=== PATIENT | male | born 1985 | race Caucasian/White ===

== ENCOUNTER 2016-11-17 23:44 | Emergency (ER) | payer SELFPAY ==
[2016-11-18] MEDS ORDERED: SODIUM CHLORIDE 0.9% 500 ML IV STA (00:22)
[2016-11-18 00:30] LABS: Basophils # (A) 0.1 k/uL (0-0.2); Basophils % (A) 0 %; CH 28.6; CHCM 34.3; Eosinophils # (A) 0.2 k/uL (0-0.7); Eosinophils % (A) 1 %; HCT 49.9 % (39.0-53.0); HDW 2.61; HGB 16.4 gm/dL (13.0-17.5); Luc # (Auto) 0.15; Luc % (Auto) 1; Lymphocytes # (A) 1.6 k/uL (1.0-4.8); Lymphocytes % (A) 8 %; MCH 27.5 pg (25.0-35.0); MCHC 32.8 g/dL (31.0-37.0); MCV 83.9 fL (80.0-100.0); Mean Platelet Volume 6.7; Monocytes # (A) 0.6 k/uL (0-1.0); Monocytes % (A) 3 %; Neutrophils # (A) 18.5 k/uL (1.3-7.7); Neutrophils % (A) 88 %; RBC 5.94 m/uL (4.30-5.90); RDW 14.4 % (11.5-15.5); WBC 21.1 k/uL (3.8-10.6); WBC (Perox) 21.21
[2016-11-18 00:39] LABS: Acetaminophen <10.0 ug/mL; Alcohol <10 mg/dL; Anion Gap 14 mmol/L; Blood Urea Nitrogen 14 mg/dL (9-20); Carbon Dioxide 24 mmol/L (22-30); Chloride 102 mmol/L (98-107); Glucose 104 mg/dL (74-99); Non-African American GFR(MDRD) 40 (>60 ml/min/1.73 sqM); Potassium 4.5 mmol/L (3.5-5.1); Salicylate <1.0 mg/dL; Sodium 140 mmol/L (137-145)
[2016-11-18] MEDS ORDERED: SODIUM CHLORIDE 0.9% 1,000 ML IV ONE (02:05)
--- NOTE | 2016-11-18 02:10 | ED ---
Overdose HPI - General Chief Complaint: Overdose Stated Complaint: Mental Health/Heroin Use Time Seen by Provider: 11/18/16 00:04 Source: patient Mode of arrival: ambulatory Limitations: no limitations - History of Present Illness MD Complaint: accidental overdose -: minutes(s) How Overdose Was Discovered: family/friend present at time Context: Accidental Overdose: wanted to get high - Related Data Previous Rx's Medication Instructions Recorded Ondansetron Odt [Zofran ODT] 4 mg PO Q8HR PRN #10 tab 11/18/16 cloNIDine HCL [Catapres] 0.2 mg PO TID #20 tablet 11/18/16 Allergies Allergy/AdvReac Type Severity Reaction Status Date / Time No Known Allergies Allergy Verified 11/17/16 23:56 Review of Systems ROS Statement: Those systems with pertinent positive or pertinent negative responses have been documented in the HPI. ROS Other: All systems not noted in ROS Statement are negative. Constitutional: Denies: fever, chills Cardiovascular: Denies: chest pain Gastrointestinal: Denies: abdominal pain, nausea, vomiting Musculoskeletal: Denies: back pain Skin: Denies: rash Neurological: Denies: headache, weakness, numbness Psychiatric: Denies: homicidal thoughts, suicidal thoughts Past Medical History Past Medical History: No Reported History Additional Past Medical History / Comment(s): cardiac arrest due to overdose; hep C History of Any Multi-Drug Resistant Organisms: MRSA Past Surgical History: No Surgical Hx Reported Past Psychological History: Anxiety, Depression Smoking Status: Current some day smoker Past Alcohol Use History: Daily Past Drug Use History: Cocaine, Heroin General Exam Limitations: no limitations General appearance: alert, in no apparent distress Head exam: Present: atraumatic, normocephalic Eye exam: Present: normal appearance. Absent: scleral icterus, conjunctival injection Neck exam: Present: normal inspection, full ROM Respiratory exam: Present: normal lung sounds bilaterally. Absent: respiratory distress, wheezes, rales, rhonchi, stridor Cardiovascular Exam: Present: regular rate, normal rhythm, normal heart sounds. Absent: systolic murmur, diastolic murmur, rubs, gallop GI/Abdominal exam: Present: soft. Absent: distended, tenderness, guarding, rebound, rigid Extremities exam: Present: normal inspection, normal capillary refill. Absent: pedal edema, calf tenderness Back exam: Present: normal inspection. Absent: CVA tenderness (R), CVA tenderness (L) Skin exam: Present: warm, dry, intact, normal color. Absent: rash Course Vital Signs 11/17/16 11/18/16 11/18/16 23:50 00:19 00:39 Temperature 96.9 F L Pulse Rate 104 H 102 H 82 Respiratory 20 16 16 Rate Blood Pressure 89/55 106/56 98/61 O2 Sat by Pulse 98 96 97 Oximetry 11/18/16 11/18/16 11/18/16 00:59 01:59 03:20 Temperature 98.0 F Pulse Rate 82 89 88 Respiratory 16 16 18 Rate Blood Pressure 101/71 117/70 117/56 O2 Sat by Pulse 97 98 99 Oximetry Medical Decision Making - Medical Decision Making Patient is 31-year-old man who was brought by family with concerns about his heroin use and for an attempt to find rehabilitation resources. I discussed the local rehab resources and given a list of drug rehabs. In addition discussed patient's kidney functions and he will work performed oral rehydration and have the levels rechecked. Patient to return if any change in symptoms. - Lab Data Result diagrams: 11/18/16 00:15 11/18/16 00:15 Lab Results 11/18/16 11/18/16 11/18/16 Range/Units 00:15 00:15 01:28 WBC 21.1 H (3.8-10.6) k/uL RBC 5.94 H (4.30-5.90) m/uL Hgb 16.4 (13.0-17.5) gm/dL Hct 49.9 (39.0-53.0) % MCV 83.9 (80.0-100.0) fL MCH 27.5 (25.0-35.0) pg MCHC 32.8 (31.0-37.0) g/dL RDW 14.4 (11.5-15.5) % Plt Count 430 (150-450) k/uL Neutrophils % 88 % Lymphocytes % 8 % Monocytes % 3 % Eosinophils % 1 % Basophils % 0 % Neutrophils # 18.5 H (1.3-7.7) k/uL Lymphocytes # 1.6 (1.0-4.8) k/uL Monocytes # 0.6 (0-1.0) k/uL Eosinophils # 0.2 (0-0.7) k/uL Basophils # 0.1 (0-0.2) k/uL Sodium 140 (137-145) mmol/L Potassium 4.5 (3.5-5.1) mmol/L Chloride 102 (98-107) mmol/L Carbon Dioxide 24 (22-30) mmol/L Anion Gap 14 mmol/L BUN 14 (9-20) mg/dL Creatinine 2.00 H (0.66-1.25) mg/dL Est GFR (MDRD) Af Amer 48 (>60 ml/min/1.73 sqM) Est GFR (MDRD) Non-Af 40 (>60 ml/min/1.73 sqM) Glucose 104 H (74-99) mg/dL Calcium 10.0 (8.4-10.2) mg/dL Salicylates <1.0 mg/dL Urine Opiates Screen Detected H (NotDetected) Ur Oxycodone Screen Not Detected (NotDetected) Urine Methadone Screen Not Detected (NotDetected) Ur Propoxyphene Screen Not Detected (NotDetected) Acetaminophen <10.0 ug/mL Ur Barbiturates Screen Not Detected (NotDetected) U Tricyclic Antidepress Not Detected (NotDetected) Ur Phencyclidine Scrn Not Detected (NotDetected) Ur Amphetamines Screen Not Detected (NotDetected) U Methamphetamines Scrn Not Detected (NotDetected) U Benzodiazepines Scrn Not Detected (NotDetected) Urine Cocaine Screen Detected H (NotDetected) U Marijuana (THC) Screen Detected H (NotDetected) Serum Alcohol <10 mg/dL Disposition Clinical Impression: Substance abuse, Acute renal insufficiency Disposition: HOME SELF-CARE Condition: Fair Instructions: Polysubstance Abuse (ED), Impaired Kidney Function (ED) Additional Instructions: As we discussed, follow-up to have your creatinine rechecked. It was 2.0 today. Drink plenty of fluids and have this value rechecked in 2-3 days. Prescriptions: cloNIDine HCL [Catapres] 0.2 mg PO TID #20 tablet Ondansetron Odt [Zofran ODT] 4 mg PO Q8HR PRN #10 tab PRN Reason: Nausea Referrals: Ge Slater DO [Primary Care Provider] - 1-2 days
[2016-11-18 03:21] VITALS: BP 117/56; PULSE 88; RESP 18; TEMP 98
--- NOTE | 2016-11-20 03:00 | CDI ---
Dear Nando Cardenas MD: Please do addendum History of Present Illness and Physical Examination. Thank you, Mitch Alicia, Plumbing And Heating Mechanic. If you have any questions, please contact Mixer Tender at [phone]. MARTIND
== END 2016-11-18 03:15 | disposition home or self-care (01) ==
LOC: EC 23:44
DX: F11.10 Opioid abuse, uncomplicated (principal); N28.9 Disorder of kidney and ureter, unspecified; F17.200 Nicotine dependence, unspecified, uncomplicated
CPT/HCPCS: 36415; 80048; 80306; 80320; 82075; 83520; 85025; 93005; 96360; 99284

== ENCOUNTER 2017-01-21 23:05 | Emergency (ER) | payer BC, OTHER ==
--- NOTE | 2017-01-22 01:57 | ED ---
Overdose HPI - General Chief Complaint: Overdose Stated Complaint: overdose Time Seen by Provider: 01/21/17 23:11 Source: EMS Mode of arrival: EMS Limitations: no limitations - History of Present Illness Initial Comments: this patient is a 31-year-old man with history of heroin abuse. EMS was called to pick the patient up from the home of his mother. She states that she had called them because he was confused and the mother was concerned that the patient may have taken an overdose. The patient states that he has no intention of harming himself. He had used as is normal for his situation. He denies any complaints. He states that his mother does get upset about his use. He has been seen here previously for this. MD Complaint: other -: hour(s) Context: Accidental Overdose: wanted to get high - Related Data Home Medications Medication Instructions Recorded Confirmed Melatonin(Unknown Dose) 1 tab PO HS PRN 01/21/17 01/21/17 Allergies Allergy/AdvReac Type Severity Reaction Status Date / Time No Known Allergies Allergy Verified 01/21/17 23:39 Review of Systems ROS Statement: Those systems with pertinent positive or pertinent negative responses have been documented in the HPI. ROS Other: All systems not noted in ROS Statement are negative. Constitutional: Denies: fever Respiratory: Denies: cough, dyspnea Cardiovascular: Denies: chest pain, palpitations, syncope Gastrointestinal: Denies: abdominal pain, vomiting, diarrhea Skin: Denies: rash, lesions Neurological: Denies: headache, weakness, numbness Psychiatric: Denies: suicidal thoughts Past Medical History Past Medical History: No Reported History Additional Past Medical History / Comment(s): cardiac arrest due to overdose; hep C History of Any Multi-Drug Resistant Organisms: MRSA Past Surgical History: No Surgical Hx Reported Past Psychological History: Anxiety, Depression Smoking Status: Current some day smoker Past Alcohol Use History: Occasional Past Drug Use History: Cocaine, Heroin, Marijuana General Exam Limitations: no limitations General appearance: alert, in no apparent distress Head exam: Present: atraumatic, normocephalic Eye exam: Present: normal appearance, PERRL. Absent: scleral icterus, conjunctival injection ENT exam: Present: normal oropharynx Respiratory exam: Present: normal lung sounds bilaterally. Absent: respiratory distress, wheezes, rales, rhonchi, stridor Cardiovascular Exam: Present: regular rate, normal rhythm, normal heart sounds. Absent: systolic murmur, diastolic murmur, rubs, gallop GI/Abdominal exam: Present: soft. Absent: distended, tenderness, guarding, rebound Extremities exam: Present: normal inspection, normal capillary refill. Absent: pedal edema, calf tenderness Back exam: Present: normal inspection Neurological exam: Present: alert, oriented X3 Skin exam: Present: warm, dry, intact, normal color, other (needle tracks) Course Vital Signs 01/21/17 01/21/17 01/22/17 23:18 23:24 02:35 Temperature 99.2 F 97.6 F Pulse Rate 111 H 95 99 Respiratory 20 22 18 Rate Blood Pressure 112/56 121/58 O2 Sat by Pulse 92 L 92 L 98 Oximetry Medical Decision Making - Medical Decision Making The patient is reevaluated prior to discharge and again expresses that he has no suicidal ideation. He did receive resources for rehab options. Discussed return parameters Disposition Clinical Impression: Narcotic dependence Disposition: HOME SELF-CARE Condition: Fair Instructions: Narcotic Abuse (ED) Referrals: None,Stated [Primary Care Provider] - 1-2 days
[2017-01-22 02:37] VITALS: BP 121/58; PULSE 99; RESP 18; TEMP 97.6
== END 2017-01-22 02:37 | disposition home or self-care (01) ==
LOC: EC 23:05
DX: F11.20 Opioid dependence, uncomplicated (principal); F17.200 Nicotine dependence, unspecified, uncomplicated; Z86.14 Personal history of Methicillin resistant Staphylococcus aureus infection
CPT/HCPCS: 99284

== ENCOUNTER 2017-11-27 03:21 | Emergency (ER) | payer BC, OTHER ==
[2017-11-27] MEDS ORDERED: SODIUM CHLORIDE 0.9% 1,000 ML IV ONE (03:48)
--- NOTE | 2017-11-27 03:50 | ED ---
General Adult HPI - General Chief complaint: Overdose Stated complaint: overdose Time Seen by Provider: 11/27/17 03:37 Source: patient Mode of arrival: ambulatory Limitations: no limitations - History of Present Illness Initial comments: Manjit is a 32 yo male with PMH of polysubstance abuse who presents to the ED today for evaluation after an apparent overdose at home. Patient admits that he was drinking liquor earlier in the day, he then states that he bought a 12 pack of beer and drink most of that. He is unclear about what he did for the remainder of the evening though he does note that he bought some "dope" which she subsequently snorted. Apparently his friends dropped him off at home and his father checked on him and found that he didn't appear to be breathing. 911 was called. EMS arrived on scene the patient was given Narcan and subsequently woke up. Patient states he is not certain exactly what it is he snorted. His intent was to by an snorted hair when however he is concerned it may have been tainted with fentanyl and or cocaine. At the time of arrival the patient denies any physical complaints. He denies any chest pain or shortness of breath. He is tearful and apologetic stating that is needs to be a wakeup call he knows that he needs to sober up. - Related Data Home Medications Medication Instructions Recorded Confirmed Melatonin(Unknown Dose) 1 tab PO HS PRN 01/21/17 11/27/17 Allergies Allergy/AdvReac Type Severity Reaction Status Date / Time No Known Allergies Allergy Verified 11/27/17 03:28 Review of Systems ROS Statement: Those systems with pertinent positive or pertinent negative responses have been documented in the HPI. ROS Other: All systems not noted in ROS Statement are negative. Past Medical History Past Medical History: No Reported History Additional Past Medical History / Comment(s): cardiac arrest due to overdose; hep C History of Any Multi-Drug Resistant Organisms: MRSA Past Surgical History: No Surgical Hx Reported Past Psychological History: Anxiety, Depression Smoking Status: Current some day smoker Past Alcohol Use History: Occasional Past Drug Use History: Cocaine, Heroin, Marijuana General Exam Limitations: no limitations Course Vital Signs 11/27/17 11/27/17 11/27/17 03:24 03:40 05:00 Temperature 97.7 F Pulse Rate 123 H 112 H Pulse Rate [ 122 H Paint Coating Machine Operator ] Respiratory 18 20 Rate Blood Pressure 134/98 125/66 O2 Sat by Pulse 96 99 Oximetry 11/27/17 11/27/17 05:51 07:06 Temperature 97.8 F Pulse Rate 109 H 110 H Pulse Rate [ Paint Coating Machine Operator ] Respiratory 20 16 Rate Blood Pressure 122/74 141/66 O2 Sat by Pulse 99 94 L Oximetry EKG Findings - EKG Comments: EKG Findings:: EKG obtained at 3:24 AM, rate is 121, rhythm is sinus tachycardia , normal axis, normal intervals, NM 164, QRS 72, QTc 440, no acute ST elevations or depressions no evidence of acute ischemia or infarction. Medical Decision Making - Medical Decision Making Patient was seen and evaluated immediately upon arrival to the emergency department. Patient was apparently found unresponsive, given Narcan, has been awake and alert and oriented. Patient is clinically intoxicated, admits to drinking alcohol as well as "snorting dope" she believes may have been heroin, fentanyl and cocaine. The patient was observed for a period of 2 hours in the emergency department. He was noted to be ambulatory, awake alert oriented talking clearly. He walked to the restroom multiple times independently. He refused to give a urine sample. Patient's mother remained at bedside. At this time she feels comfortable taking the patient home. She states that she is used to taking care of him when he is intoxicated on alcohol and she feels relieved that he has been awake alert and oriented for couple of hours. Patient was provided printed referrals for outpatient management of drug addiction. Patient has been inpatient at [facility] in the past but left AGAINST MEDICAL ADVICE due to not feeling ready to be sober. Patient states he does plan to follow up at [facility] again because at this point he does feel this is a I open her and he needs to be sober. All questions pertaining to care were answered to the best of my ability, return parameters were discussed. Patient was discharged home in mother's care. Disposition Clinical Impression: Drug overdose Disposition: HOME SELF-CARE Condition: Stable Instructions: Adult Overdose (ED) Is patient prescribed a controlled substance at d/c from ED?: No Referrals: None,Stated [Primary Care Provider] - 1-2 days Time of Disposition: 05:57
[2017-11-27 05:52] VITALS: TEMP 97.8
[2017-11-27] MEDS ORDERED: INSULIN REGULAR 100 UNIT/ML VIAL IV ONE (06:19)
[2017-11-27 07:07] VITALS: BP 141/66; PULSE 110; RESP 16
== END 2017-11-27 07:07 | disposition home or self-care (01) ==
LOC: EC 03:21
DX: T50.901A Poisoning by unspecified drugs, medicaments and biological substances, accidental (unintentional), initial encounter (principal); F10.120 Alcohol abuse with intoxication, uncomplicated; F17.200 Nicotine dependence, unspecified, uncomplicated; Z53.29 Procedure and treatment not carried out because of patient's decision for other reasons; Z86.14 Personal history of Methicillin resistant Staphylococcus aureus infection; Z86.74 Personal history of sudden cardiac arrest; Y92.009 Unspecified place in unspecified non-institutional (private) residence as the place of occurrence of the external cause
CPT/HCPCS: 82075; 93005; 96360; 99284

== ENCOUNTER 2018-03-10 22:13 | Emergency (ER) | payer OTHER ==
[2018-03-10 22:26] VITALS: RESP 18
[2018-03-10 22:36] LABS: Basophils % (A) 0 %; Eosinophils # (A) 0.2 k/uL (0-0.7); Eosinophils % (A) 2 %; HCT 49.1 % (39.0-53.0); HGB 15.9 gm/dL (13.0-17.5); Lymphocytes # (A) 2.7 k/uL (1.0-4.8); Lymphocytes % (A) 32 %; MCH 28.2 pg (25.0-35.0); MCHC 32.3 g/dL (31.0-37.0); MCV 87.2 fL (80.0-100.0); Mean Platelet Volume 6.2; Monocytes # (A) 0.2 k/uL (0-1.0); Monocytes % (A) 3 %; Neutrophils # (A) 5.2 k/uL (1.3-7.7); Neutrophils % (A) 61 %; Platelet Count 358 k/uL (150-450); RBC 5.63 m/uL (4.30-5.90); WBC 8.5 k/uL (3.8-10.6)
[2018-03-10 22:48] LABS: ALT 137 U/L (21-72); AST 90 U/L (17-59); Acetaminophen <10.0 ug/mL; Albumin 4.2 g/dL (3.5-5.0); Alcohol 24 mg/dL; Alkaline Phosphatase 80 U/L (38-126); Amylase 84 U/L (30-110); Anion Gap 17 mmol/L; Blood Urea Nitrogen 15 mg/dL (9-20); Calcium 9.3 mg/dL (8.4-10.2); Carbon Dioxide 16 mmol/L (22-30); Chloride 108 mmol/L (98-107); Glucose 163 mg/dL (74-99); Lipase 133 U/L (23-300); Potassium 4.4 mmol/L (3.5-5.1); Salicylate <1.0 mg/dL; Sodium 141 mmol/L (137-145); Total Bilirubin 0.6 mg/dL (0.2-1.3); Total Protein 7.5 g/dL (6.3-8.2)
--- NOTE | 2018-03-10 22:48 | ED ---
Overdose HPI - General Source: patient, EMS, RN notes reviewed Mode of arrival: EMS Limitations: no limitations - History of Present Illness MD Complaint: intentional overdose <Vishal Arriaga - Last Filed: 03/11/18 00:22> <Nando Cardenas - Last Filed: 03/11/18 02:21> - General Chief Complaint: Overdose Stated Complaint: Overdose Time Seen by Provider: 03/10/18 22:13 - History of Present Illness Initial Comments: This is a 32-year-old male with a history of depression who presents by EMS with complaint of overdosing. He took a nickel bag of heroin today as well as a pint of anabela and one Xanax. He did require 2 mg of nasal Narcan and later IV Narcan. He became more responsive and alert and remains so and route by EMS. No fevers chills nausea vomiting sweats no cough or phlegm production no other complaints. (Vishal Arriaga) - Related Data Home Medications Medication Instructions Recorded Confirmed Gabapentin [Neurontin] 300 mg PO DAILY PRN 03/10/18 03/10/18 Naproxen [Naprosyn] 500 mg PO BID PRN 03/10/18 03/10/18 Allergies Allergy/AdvReac Type Severity Reaction Status Date / Time No Known Allergies Allergy Verified 03/10/18 22:38 Review of Systems ROS Other: All systems not noted in ROS Statement are negative. <Vishal Arriaga - Last Filed: 03/11/18 00:22> ROS Other: All systems not noted in ROS Statement are negative. <Nando Cardenas - Last Filed: 03/11/18 02:21> ROS Statement: Those systems with pertinent positive or pertinent negative responses have been documented in the HPI. Past Medical History Past Medical History: No Reported History Additional Past Medical History / Comment(s): cardiac arrest due to overdose; hep C History of Any Multi-Drug Resistant Organisms: MRSA Past Surgical History: No Surgical Hx Reported Past Psychological History: Anxiety, Depression Smoking Status: Current some day smoker Past Alcohol Use History: Abuse Past Drug Use History: Cocaine, Heroin, Marijuana <Vishal Arriaga - Last Filed: 03/11/18 00:22> General Exam Limitations: no limitations General appearance: alert, anxious Head exam: Present: atraumatic, normocephalic, normal inspection Eye exam: Present: normal appearance, PERRL, EOMI. Absent: scleral icterus, conjunctival injection, periorbital swelling ENT exam: Present: normal exam, mucous membranes moist Neck exam: Present: normal inspection. Absent: tenderness, meningismus, lymphadenopathy Respiratory exam: Present: normal lung sounds bilaterally. Absent: respiratory distress, wheezes, rales, rhonchi, stridor Cardiovascular Exam: Present: normal rhythm, tachycardia, normal heart sounds. Absent: systolic murmur, diastolic murmur, rubs, gallop, clicks GI/Abdominal exam: Present: soft, normal bowel sounds. Absent: distended, tenderness, guarding, rebound, rigid Extremities exam: Present: normal inspection, full ROM, normal capillary refill. Absent: tenderness, pedal edema, joint swelling, calf tenderness Back exam: Present: normal inspection Neurological exam: Present: alert, oriented X3, CN II-XII intact Psychiatric exam: Present: depressed, anxious, suicidal ideation Skin exam: Present: warm, dry, intact, normal color. Absent: rash <Vishal Arriaga - Last Filed: 03/11/18 00:22> <Nando Cardenas - Last Filed: 03/11/18 02:21> - General Exam Comments Initial Comments: This is a well-developed well-nourished awake alert oriented 5 male (Vishal Arriaga) Course <Vishal Arriaga - Last Filed: 03/11/18 00:22> <Nando Cardenas - Last Filed: 03/11/18 02:21> Vital Signs 03/10/18 03/10/18 03/10/18 22:16 22:30 23:00 Temperature 97.8 F Pulse Rate 116 H 108 H 106 H Respiratory 18 18 20 Rate Blood Pressure 113/87 113/87 118/64 O2 Sat by Pulse 96 94 L 95 Oximetry 03/10/18 23:30 Temperature Pulse Rate 107 H Respiratory 18 Rate Blood Pressure 117/61 O2 Sat by Pulse 95 Oximetry - Reevaluation(s) Reevaluation #1: 03/11/18 00:11 I did review the petition was filled out by the patient's mother. Lab work is pending at this time I will endorse the patient's care to Dr. Cardenas at shift change (Vishal Arriaga) Medical Decision Making - Lab Data Result diagrams: 03/10/18 22:24 03/10/18 22:24 - EKG Data EKG shows normal: sinus rhythm (Sinus tachycardia of 111. Interval 168 QRS duration 76 QT since QTC 310/421 nonspecific septal changes.) <BartVishal - Last Filed: 03/11/18 00:22> - Lab Data Result diagrams: 03/10/18 22:24 03/10/18 22:24 <Nando Cardenas - Last Filed: 03/11/18 02:21> - Lab Data Lab Results 03/10/18 03/10/18 03/10/18 Range/Units 22:24 22:24 22:24 WBC 8.5 (3.8-10.6) k/uL RBC 5.63 (4.30-5.90) m/uL Hgb 15.9 (13.0-17.5) gm/dL Hct 49.1 (39.0-53.0) % MCV 87.2 (80.0-100.0) fL MCH 28.2 (25.0-35.0) pg MCHC 32.3 (31.0-37.0) g/dL RDW 13.0 (11.5-15.5) % Plt Count 358 (150-450) k/uL Neutrophils % 61 % Lymphocytes % 32 % Monocytes % 3 % Eosinophils % 2 % Basophils % 0 % Neutrophils # 5.2 (1.3-7.7) k/uL Lymphocytes # 2.7 (1.0-4.8) k/uL Monocytes # 0.2 (0-1.0) k/uL Eosinophils # 0.2 (0-0.7) k/uL Basophils # 0.0 (0-0.2) k/uL PT (9.0-12.0) sec INR (<1.2) Sodium 141 (137-145) mmol/L Potassium 4.4 (3.5-5.1) mmol/L Chloride 108 H (98-107) mmol/L Carbon Dioxide 16 L (22-30) mmol/L Anion Gap 17 mmol/L BUN 15 (9-20) mg/dL Creatinine 1.40 H (0.66-1.25) mg/dL Est GFR (CKD-EPI)AfAm 78 (>60 ml/min/1.73 sqM) Est GFR (CKD-EPI)NonAf 67 (>60 ml/min/1.73 sqM) Glucose 163 H (74-99) mg/dL Calcium 9.3 (8.4-10.2) mg/dL Total Bilirubin 0.6 (0.2-1.3) mg/dL AST 90 H (17-59) U/L ALT 137 H (21-72) U/L Alkaline Phosphatase 80 (38-126) U/L Total Creatine Kinase 139 (55-170) U/L CK-MB (CK-2) 0.6 (0.0-2.4) ng/mL CK-MB (CK-2) Rel Index 0.4 Troponin I 0.022 (0.000-0.034) ng/mL Total Protein 7.5 (6.3-8.2) g/dL Albumin 4.2 (3.5-5.0) g/dL Amylase 84 (30-110) U/L Lipase 133 (23-300) U/L Salicylates <1.0 mg/dL Urine Opiates Screen (NotDetected) Ur Oxycodone Screen (NotDetected) Urine Methadone Screen (NotDetected) Ur Propoxyphene Screen (NotDetected) Acetaminophen <10.0 ug/mL Ur Barbiturates Screen (NotDetected) U Tricyclic Antidepress (NotDetected) Ur Phencyclidine Scrn (NotDetected) Ur Amphetamines Screen (NotDetected) U Methamphetamines Scrn (NotDetected) U Benzodiazepines Scrn (NotDetected) Urine Cocaine Screen (NotDetected) U Marijuana (THC) Screen (NotDetected) Serum Alcohol 24 mg/dL 03/10/18 03/11/18 Range/Units 22:24 00:29 WBC (3.8-10.6) k/uL RBC (4.30-5.90) m/uL Hgb (13.0-17.5) gm/dL Hct (39.0-53.0) % MCV (80.0-100.0) fL MCH (25.0-35.0) pg MCHC (31.0-37.0) g/dL RDW (11.5-15.5) % Plt Count (150-450) k/uL Neutrophils % % Lymphocytes % % Monocytes % % Eosinophils % % Basophils % % Neutrophils # (1.3-7.7) k/uL Lymphocytes # (1.0-4.8) k/uL Monocytes # (0-1.0) k/uL Eosinophils # (0-0.7) k/uL Basophils # (0-0.2) k/uL PT 10.2 (9.0-12.0) sec INR 0.9 (<1.2) Sodium (137-145) mmol/L Potassium (3.5-5.1) mmol/L Chloride (98-107) mmol/L Carbon Dioxide (22-30) mmol/L Anion Gap mmol/L BUN (9-20) mg/dL Creatinine (0.66-1.25) mg/dL Est GFR (CKD-EPI)AfAm (>60 ml/min/1.73 sqM) Est GFR (CKD-EPI)NonAf (>60 ml/min/1.73 sqM) Glucose (74-99) mg/dL Calcium (8.4-10.2) mg/dL Total Bilirubin (0.2-1.3) mg/dL AST (17-59) U/L ALT (21-72) U/L Alkaline Phosphatase (38-126) U/L Total Creatine Kinase (55-170) U/L CK-MB (CK-2) (0.0-2.4) ng/mL CK-MB (CK-2) Rel Index Troponin I (0.000-0.034) ng/mL Total Protein (6.3-8.2) g/dL Albumin (3.5-5.0) g/dL Amylase (30-110) U/L Lipase (23-300) U/L Salicylates mg/dL Urine Opiates Screen Detected H (NotDetected) Ur Oxycodone Screen Not Detected (NotDetected) Urine Methadone Screen Not Detected (NotDetected) Ur Propoxyphene Screen Not Detected (NotDetected) Acetaminophen ug/mL Ur Barbiturates Screen Not Detected (NotDetected) U Tricyclic Antidepress Not Detected (NotDetected) Ur Phencyclidine Scrn Not Detected (NotDetected) Ur Amphetamines Screen Not Detected (NotDetected) U Methamphetamines Scrn Not Detected (NotDetected) U Benzodiazepines Scrn Detected H (NotDetected) Urine Cocaine Screen Detected H (NotDetected) U Marijuana (THC) Screen Detected H (NotDetected) Serum Alcohol mg/dL Disposition <Vishal Arriaga - Last Filed: 03/11/18 00:22> Is patient prescribed a controlled substance at d/c from ED?: No <Nando Cardenas - Last Filed: 03/11/18 02:21> Clinical Impression: Poisoning by opiate or related narcotic Disposition: HOME SELF-CARE Condition: Good Instructions: Adult Overdose (ED) Referrals: None,Stated [Primary Care Provider] - 1-2 days
[2018-03-10 22:53] LABS: INR 0.9 (<1.2); Prothrombin Time 10.2 sec (9.0-12.0)
[2018-03-10 23:08] LABS: Creatine Kinase MB 0.6 ng/mL (0.0-2.4); Troponin I 0.022 ng/mL (0.000-0.034)
[2018-03-11 01:18] LABS: Amphetamine Screen,Urine Not Detected (NotDetected); Barbiturate Screen,Urine Not Detected (NotDetected); Benzodiazepines Screen,Urine Detected (NotDetected); Cocaine Screen,Urine Detected (NotDetected); Methadone Screen, Urine Not Detected (NotDetected); Opiate Screen,Urine Detected (NotDetected); Oxycodone Screen, Urine Not Detected (NotDetected); Phencyclidine Screen,Urine Not Detected (NotDetected); Tricyclic Antidepressant,Urine Not Detected (NotDetected); Urn Cannabinoid Scrn Detected (NotDetected)
[2018-03-11 02:28] VITALS: BP 127/76; PULSE 100; TEMP 98.5
== END 2018-03-11 02:31 | disposition home or self-care (01) ==
LOC: EC 22:13
DX: T42.4X2A Poisoning by benzodiazepines, intentional self-harm, initial encounter (principal); T40.1X2A Poisoning by heroin, intentional self-harm, initial encounter; T51.8X2A Toxic effect of other alcohols, intentional self-harm, initial encounter; R00.0 Tachycardia, unspecified; F32.9 Major depressive disorder, single episode, unspecified; R45.851 Suicidal ideations; F17.200 Nicotine dependence, unspecified, uncomplicated; Z86.74 Personal history of sudden cardiac arrest
CPT/HCPCS: 36415; 93005; 80053; 82150; 82550; 82553; 83690; 84484; 85025; 85610; 80306; 83520 ×2; 99285; G0480; 80320

== ENCOUNTER 2018-03-23 11:41 | Emergency (ER) | payer OTHER ==
[2018-03-23 11:51] VITALS: BP 131/82; PULSE 103; RESP 18; TEMP 98
--- NOTE | 2018-03-23 12:56 | ED ---
Head Injury HPI - General Chief complaint: Head Injury Stated complaint: Head Injury Time Seen by Provider: 03/23/18 12:35 Source: patient, RN notes reviewed, old records reviewed Mode of arrival: ambulatory Limitations: no limitations - History of Present Illness Initial comments: This is a 32-year-old male the ER for evaluation of head injury. Patient was hit in the head accidentally by a coworker other putting up support for a wall. No loss of consciousness. Mild bleeding from the right side of his scalp. Patient denies any other significant injury. Patient denies nausea, no vomiting , no current complaints MD Complaint: head injury -: hour(s) Mechanism of Injury: work related injury, machine or tool related injury Location: parietal (Right) Loss of Consciousness: no Previous Trauma to this Area: No Place: work Radiation: none Severity: mild Other Injuries: laceration - Related Data Home Medications Medication Instructions Recorded Confirmed Gabapentin [Neurontin] 300 mg PO DAILY PRN 03/10/18 03/10/18 Naproxen [Naprosyn] 500 mg PO BID PRN 03/10/18 03/10/18 Allergies/Adverse reactions: Allergies Allergy/AdvReac Type Severity Reaction Status Date / Time No Known Allergies Allergy Verified 03/23/18 11:46 Review of Systems ROS Statement: Those systems with pertinent positive or pertinent negative responses have been documented in the HPI. ROS Other: All systems not noted in ROS Statement are negative. Past Medical History Past Medical History: No Reported History Additional Past Medical History / Comment(s): cardiac arrest due to overdose; hep C History of Any Multi-Drug Resistant Organisms: MRSA Past Surgical History: No Surgical Hx Reported Past Psychological History: Anxiety, Depression Smoking Status: Current some day smoker Past Alcohol Use History: Occasional Past Drug Use History: Cocaine, Heroin, Marijuana General Exam Limitations: no limitations General appearance: alert, in no apparent distress Head exam: Present: normocephalic, normal inspection. Absent: atraumatic ( Patient does have 2 cm laceration to right parietal scalp) Eye exam: Present: normal appearance, PERRL, EOMI. Absent: scleral icterus, conjunctival injection, periorbital swelling ENT exam: Present: normal exam, mucous membranes moist Neck exam: Present: normal inspection. Absent: tenderness, meningismus, lymphadenopathy Respiratory exam: Present: normal lung sounds bilaterally. Absent: respiratory distress, wheezes, rales, rhonchi, stridor Cardiovascular Exam: Present: regular rate, normal rhythm, normal heart sounds. Absent: systolic murmur, diastolic murmur, rubs, gallop, clicks GI/Abdominal exam: Present: soft, normal bowel sounds. Absent: distended, tenderness, guarding, rebound, rigid Extremities exam: Present: normal inspection, full ROM, normal capillary refill. Absent: tenderness, pedal edema, joint swelling, calf tenderness Back exam: Present: normal inspection Neurological exam: Present: alert, oriented X3, CN II-XII intact Psychiatric exam: Present: normal affect, normal mood Skin exam: Present: warm, dry, intact, normal color. Absent: rash Course Vital Signs 03/23/18 11:46 Temperature 98 F Pulse Rate 103 H Respiratory 18 Rate Blood Pressure 131/82 O2 Sat by Pulse 99 Oximetry - Reevaluation(s) Reevaluation #1: 03/23/18 13:14 No significant symptoms Procedures - Laceration Laceration #1 Consent Obtained: verbal consent Time Out Performed: No Indication: laceration Site: scalp Size (cm): 2 Description: stellate Pre-repair: wound explored, irrigated extensively Type of Sutures: other ([place]) Complications: pain Patient Tolerated Procedure: well Medical Decision Making - Medical Decision Making 32 male the ER with head injury, 2 cm laceration was repaired with fahad here in the ER. Patient is asymptomatic, no imaging needed. Patient can be discharged home Disposition Clinical Impression: Closed head injury, Scalp laceration Disposition: HOME SELF-CARE Condition: Good Instructions: Concussion (ED), Staple Care (ED) Is patient prescribed a controlled substance at d/c from ED?: No Referrals: Ge Slater DO [Primary Care Provider] - 1-2 days
== END 2018-03-23 13:45 | disposition home or self-care (01) ==
LOC: EC 11:41
DX: S01.01XA Laceration without foreign body of scalp, initial encounter (principal); F17.200 Nicotine dependence, unspecified, uncomplicated; Z86.74 Personal history of sudden cardiac arrest; W27.8XXA Contact with other nonpowered hand tool, initial encounter; Y92.69 Other specified industrial and construction area as the place of occurrence of the external cause; Y99.0 Civilian activity done for income or pay
CPT/HCPCS: 12001; 99283